=== PATIENT | female | born 1940 | race American Indian/Alaskan Native ===

== ENCOUNTER → 2016-07-11 | Outpatient (CLI) | payer MEDICARE ==
[~2016-07-11] MED LIST: ACLI400A2 INH; ALBU18HF INH; ALBU2.5V NPPB; ALBU8.5H3; ALPR-475 PO; ALPR0.25 PO; ATOR20TA PO; BUDE10.2 INH; CEFD300C2 PO; CEPH-368 PO; CITA40TA5 PO; DIAZ5TAB4 PO; DOXY100C2 PO; DOXY100T9 PO; FAMO20TA7 PO; FERR325C; FLUC200T4 PO; FLUT1BLS INH; FLUT1DIS3 INH; FURO-93 PO; GABA100C PO; GABA300C10 PO; GLIM4TAB PO; GUAI200T3 PO; HYDR-3138 PO; HYDR473S19 PO; HYDR4TAB16 PO; IPRA3AMP INH; LACT1CAP24 PO; LEVO500T8 PO; LEVO750T26 PO; LISI-167 PO; LISI1TAB3 PO; LORA-446 PO; MERO1VIA3 IV; METF500T4 PO; METH4TAB2 PO; METH750T87 PO; MONT10TA6 PO; MORP15TA3 PO; MORP30SU PR; NICO1PAT10 TD; OMEP40CA6 PO; OMNIPAQUE 350 MG/ML, 100ML BOTTLE ONE; ONDA-39 PO; ONDA4TAB7 PO; OXYC1TAB6 PO; OXYC1TAB8 PO; OXYC1TAB9 PO; OXYC30TA PO; OXYC5TAB3 PO; POLY17PO5 PO; POTA20PA PO; PRED10TA PO; PRED20TA PO; PRED50TA PO; PRED5TAB19 PO; RALO60TA PO; RIVA20TA PO; TIOT18CA; TIOT18CA INH; TRAM50TA2 PO
== END | disposition home or self-care (01) ==
LOC: CFH 12:51
PROVIDERS: ATTEND Specialist
DX: C64.9 Malignant neoplasm of unspecified kidney, except renal pelvis (principal); N28.89 Other specified disorders of kidney and ureter; J43.9 Emphysema, unspecified; J98.11 Atelectasis; R59.1 Generalized enlarged lymph nodes; I25.10 Atherosclerotic heart disease of native coronary artery without angina pectoris; K86.89 Other specified diseases of pancreas; K57.30 Diverticulosis of large intestine without perforation or abscess without bleeding; M85.88 Other specified disorders of bone density and structure, other site; D25.9 Leiomyoma of uterus, unspecified; Z90.81 Acquired absence of spleen; Z90.49 Acquired absence of other specified parts of digestive tract
CPT/HCPCS: 71260; 74177; 82565; Q9967

== ENCOUNTER 2016-08-19 03:58 | Inpatient (IN) | payer MEDICARE ==
[~2016-08-19] VITALS: Ht 149.9 cm; Wt 41.2 kg
[~2016-08-19 03:58] MED LIST changes: -CEFD300C2 PO; +CEFD300C37 PO; +MERO1VIA15 IV; -MERO1VIA3 IV; -OMNIPAQUE 350 MG/ML, 100ML BOTTLE ONE
[2016-08-19] MEDS ORDERED: SODIUM CHLORIDE 0.9% 1,000ML IVBOLUS ONE ×2 (04:30→05:30)
[2016-08-19] MEDS ORDERED: ALBUTEROL/IPRATROPIUM 2.5MG/0.5MG, 3 ML ONE (04:41)
[2016-08-19] MEDS ORDERED: methylPREDNISolone SOD SUCC 125 MG/2 ML ONE (04:55)
[2016-08-19] MEDS ORDERED: ALBUTEROL/IPRATROPIUM 2.5MG/0.5MG, 3 ML NPPB ONE (05:00)
[2016-08-19] MEDS ORDERED: methylPREDNISolone SOD SUCC 125 MG/2 ML IVP ONE (05:00)
[2016-08-19] MEDS ORDERED: PANT20TA3 PO (05:11)
[2016-08-19] MEDS ORDERED: DEXT5TAB17 PO (05:11)
[2016-08-19] MEDS ORDERED: FURO20TA3 PO (05:11)
[2016-08-19 05:16] LABS: BLOOD UREA NITROGEN 12 mg/dL (7-18)
[2016-08-19 05:21] LABS: IS PT STATUS REG ER OR PRE ER? YES
[2016-08-19] MEDS ORDERED: LEVOFLOXACIN/PMX 750MG/150ML 150 ML ONE (05:23)
[2016-08-19] MEDS ORDERED: VANCOMYCIN 800 MG in SODIUM CHLORIDE 0.9% 100 ML IV ONE (05:30)
[2016-08-19] MEDS ORDERED: VANCOMYCIN PER PHARMACY MC ONE (05:30)
[2016-08-19] MEDS ORDERED: LEVOFLOXACIN/PMX 750MG/150ML 150 ML IVPB ONE (05:30)
[2016-08-19 05:33] LABS: DIFF TOTAL CELLS COUNTED 100 CELL DIFF
[2016-08-19 05:36] LABS: VERIFY COUNTS? YES
[2016-08-19] MEDS ORDERED: OMNIPAQUE 350 MG/ML, 100ML BOTTLE ONE (06:18)
[2016-08-19] MEDS ORDERED: HYDR2TAB13 PO (06:46)
[2016-08-19] MEDS ORDERED: SODIUM CHLORIDE FLUSH 10ML SYR IVF PRN (07:30)
[2016-08-19] MEDS ORDERED: MORPHINE SULFATE 4 MG/ML, 1ML ONE (07:31)
[2016-08-19] MEDS: MORPHINE SULFATE 4 MG/ML, 1ML IVPush PRN ×2 (07:35→09:22)
[2016-08-19 08:22] VITALS: BP 113/61
[2016-08-19] MEDS ORDERED: DIAZEPAM 5 MG TABLET PO PRN (08:30)
[2016-08-19] MEDS ORDERED: ONDANSETRON 2MG/ML, 2ML IVP PRN (08:30)
[2016-08-19] MEDS: TEMPLATE NON-FORMULARY MED. (Tiotropium Bromide** (Spiriva**) 18 MCG) INH SCH (09:00)
[2016-08-19] MEDS: NICOTINE 14MG/24 HR PATCH.TD24 TD SCH (09:00)
[2016-08-19] MEDS: SENNA/DOCUSATE TABLET PO SCH (09:00)
[2016-08-19] MEDS: GLIMEPIRIDE 4 MG TABLET PO SCH (09:00)
[2016-08-19] MEDS ORDERED: FLUTICASONE/VILANTEROL 200-25MCG/INH INH SCH (09:00)
[2016-08-19] MEDS ORDERED: PROMETHAZINE 12.5 MG SUPP PR PRN (09:30)
[2016-08-19] MEDS: HYDROmorphone 2 MG/ML, 1ML IV PRN ×2 (10:00→16:13)
[2016-08-19] MEDS: FAMOTIDINE 20 MG TABLET PO SCH ×2 (10:02→22:36)
[2016-08-19] MEDS: DOXYCYCLINE 100MG TABLET PO SCH ×2 (10:02→22:36)
[2016-08-19] MEDS: FUROSEMIDE 20 MG TABLET PO SCH (10:02)
[2016-08-19] MEDS: ENOXAPARIN 40 MG/0.4 ML SQ SCH (10:03)
[2016-08-19] MEDS: methylPREDNISolone SOD SUCC 125 MG/2 ML IVPush SCH ×2 (10:03→17:13)
[2016-08-19] MEDS: CEFTRIAXONE PMX 1GM/50ML 50 ML IV SCH (10:04)
[2016-08-19] MEDS: SODIUM CHLORIDE FLUSH 10ML SYR IVF SCH ×2 (10:05→21:00)
[2016-08-19] MEDS: FLUTICASONE/VILANTEROL 200-25MCG/INH INH SCH (10:15)
[2016-08-19] MEDS ORDERED: ALBUTEROL/IPRATROPIUM 2.5MG/0.5MG, 3 ML NPPB PRN (12:30)
[2016-08-19] MEDS: INSULIN REGULAR 100 UNITS/ML, 3ML VIAL SQ-INSULIN SCH ×3 (12:51→21:00)
[2016-08-19 12:55] VITALS: BP 127/65
[2016-08-19 19:06] VITALS: BP 95/54
[2016-08-19] MEDS: OXYcodone IR 5MG TABLET PO PRN (22:49)
[2016-08-20] MEDS: methylPREDNISolone SOD SUCC 125 MG/2 ML IVPush SCH ×3 (01:15→16:38)
[2016-08-20 01:47] VITALS: BP 110/62
[2016-08-20 06:08] LABS: BLOOD UREA NITROGEN 14 mg/dL (7-18)
[2016-08-20 06:30] VITALS: BP 139/66
[2016-08-20] MEDS: SENNA/DOCUSATE TABLET PO SCH (09:00)
[2016-08-20] MEDS: TEMPLATE NON-FORMULARY MED. (Tiotropium Bromide** (Spiriva**) 18 MCG) INH SCH (09:00)
[2016-08-20] MEDS: NICOTINE 14MG/24 HR PATCH.TD24 TD SCH (09:00)
[2016-08-20] MEDS: GLIMEPIRIDE 4 MG TABLET PO SCH (09:00)
[2016-08-20] MEDS: CEFTRIAXONE PMX 1GM/50ML 50 ML IV SCH (09:06)
[2016-08-20] MEDS: FLUTICASONE/VILANTEROL 200-25MCG/INH INH SCH (09:06)
[2016-08-20] MEDS: DOXYCYCLINE 100MG TABLET PO SCH ×2 (09:06→22:01)
[2016-08-20] MEDS: FAMOTIDINE 20 MG TABLET PO SCH ×2 (09:06→22:01)
[2016-08-20] MEDS: ENOXAPARIN 40 MG/0.4 ML SQ SCH (09:07)
[2016-08-20] MEDS: FUROSEMIDE 20 MG TABLET PO SCH (09:07)
[2016-08-20] MEDS: OXYcodone IR 5MG TABLET PO PRN (09:07)
[2016-08-20] MEDS: INSULIN REGULAR 100 UNITS/ML, 3ML VIAL SQ-INSULIN SCH ×4 (09:09→22:22)
[2016-08-20] MEDS: SODIUM CHLORIDE FLUSH 10ML SYR IVF SCH ×2 (09:21→22:01)
[2016-08-20 13:25] VITALS: BP 110/45
[2016-08-20] MEDS: OXYcodone IR 30 MG TABLET PO PRN ×2 (14:57→22:22)
[2016-08-20] MEDS ORDERED: MAGNESIUM SULFATE PMX 2GM/50ML 50 ML IV ONE (18:00)
[2016-08-20 20:00] VITALS: BP 106/58
[2016-08-21] MEDS: methylPREDNISolone SOD SUCC 125 MG/2 ML IVPush SCH ×2 (00:51→08:57)
[2016-08-21 00:56] VITALS: BP 119/54
[2016-08-21 06:37] LABS: ASPARTATE AMINO TRANSFERASE 9 U/L (15-37); BLOOD UREA NITROGEN 21 mg/dL (7-18)
[2016-08-21 07:06] LABS: DIFF TOTAL CELLS COUNTED 100 CELL DIFF
[2016-08-21 07:09] LABS: ANISOCYTOSIS 1+; VERIFY COUNTS? YES
[2016-08-21 07:10] LABS: ACANTHOCYTES 1+; ECHINOCYTES 1+; POIKILOCYTOSIS 1+; TARGET CELLS 1+
[2016-08-21 07:14] LABS: LARGE PLATELETS 1+; OVALOCYTES 1+
[2016-08-21 07:34] VITALS: BP 122/61
[2016-08-21] MEDS: SENNA/DOCUSATE TABLET PO SCH (07:41)
[2016-08-21] MEDS: GLIMEPIRIDE 4 MG TABLET PO SCH (07:41)
[2016-08-21] MEDS: TEMPLATE NON-FORMULARY MED. (Tiotropium Bromide** (Spiriva**) 18 MCG) INH SCH (07:41)
[2016-08-21] MEDS: NICOTINE 14MG/24 HR PATCH.TD24 TD SCH (07:42)
[2016-08-21] MEDS: FLUTICASONE/VILANTEROL 200-25MCG/INH INH SCH (08:57)
[2016-08-21] MEDS: DOXYCYCLINE 100MG TABLET PO SCH (08:57)
[2016-08-21] MEDS: INSULIN REGULAR 100 UNITS/ML, 3ML VIAL SQ-INSULIN SCH ×2 (08:57→11:00)
[2016-08-21] MEDS: FUROSEMIDE 20 MG TABLET PO SCH (08:57)
[2016-08-21] MEDS: FAMOTIDINE 20 MG TABLET PO SCH (08:57)
[2016-08-21] MEDS: SODIUM CHLORIDE FLUSH 10ML SYR IVF SCH (08:58)
[2016-08-21] MEDS: ENOXAPARIN 40 MG/0.4 ML SQ SCH (08:58)
[2016-08-21] MEDS: CEFTRIAXONE PMX 1GM/50ML 50 ML IV SCH (08:58)
[2016-08-21] MEDS: OXYcodone IR 30 MG TABLET PO PRN (08:59)
[2016-08-21] MEDS ORDERED: PRED10TA PO (12:47)
[2016-08-21] MEDS ORDERED: DOXY100C2 PO (12:47)
[2016-08-21] MEDS ORDERED: IPRA3AMP NPPB (12:47)
== END 2016-08-21 13:11 | disposition home or self-care (01) | DRG 189 ==
LOC: ED 05:13 → EDIP 07:28 → 4WST 08:25
PROVIDERS: ADMIT Hospitalist; ATTEND Internal Medicine
DX: J96.21 Acute and chronic respiratory failure with hypoxia (principal); J44.1 Chronic obstructive pulmonary disease with (acute) exacerbation; J44.0 Chronic obstructive pulmonary disease with (acute) lower respiratory infection; I10 Essential (primary) hypertension; F17.210 Nicotine dependence, cigarettes, uncomplicated; J20.9 Acute bronchitis, unspecified; G89.4 Chronic pain syndrome; Z85.07 Personal history of malignant neoplasm of pancreas; Z90.81 Acquired absence of spleen; Z84.1 Family history of disorders of kidney and ureter; Z82.49 Family history of ischemic heart disease and other diseases of the circulatory system; Z88.6 Allergy status to analgesic agent; Z88.1 Allergy status to other antibiotic agents; Z88.8 Allergy status to other drugs, medicaments and biological substances
CPT/HCPCS: 36415; 71010; 71275; 80048; 80053; 81206; 81207; 82040; 82962; 83605; 83735; 83880; 84145; 84484; 85025; 87040; 87070; 87205; 93005; 94640; 96361; 96365; 96375; J0696; J1170; J1650; J1815; J1956; J3370; J7620; Q9967; J2930; J3475; J7030

== ENCOUNTER 2016-10-01 15:41 | Observation (INO) | payer MEDICARE ==
[~2016-10-01] VITALS: Ht 149.9 cm; Wt 35.5 kg
[~2016-10-01 15:41] MED LIST changes: +DEXT5TAB17 PO; +FURO20TA3 PO; +HYDR2TAB29 PO; -HYDR4TAB16 PO; +HYDR4TAB48 PO; +IPRA3AMP NPPB; +PANT20TA3 PO
[2016-10-01] MEDS ORDERED: SODIUM CHLORIDE 0.9% 1,000ML IVBOLUS ONE (16:00)
[2016-10-01] MEDS ORDERED: ASPIRIN 81 MG TABLET CHEW PO ONE (16:00)
[2016-10-01] MEDS ORDERED: SODIUM CHLORIDE FLUSH 10ML SYR IVF ONE (16:00)
[2016-10-01] MEDS ORDERED: ASPIRIN 81 MG TABLET CHEW ONE (16:17)
[2016-10-01 17:23] LABS: BLOOD UREA NITROGEN 14 mg/dL (7-18)
[2016-10-01 17:27] LABS: IS PT STATUS REG ER OR PRE ER? YES
[2016-10-01 17:59] LABS: ACANTHOCYTES 1+; LARGE PLATELETS 1+; MICROCYTOSIS 1+; OVALOCYTES 1+; TARGET CELLS 1+
[2016-10-01] MEDS ORDERED: LIDOCAINE 1%, 20ML ONE (19:07)
[2016-10-01] MEDS ORDERED: BACITRACIN ZINC OINT 500U/GM, 0.9 GM ONE (19:30)
[2016-10-01] MEDS ORDERED: ACETAMINOPHEN 325 MG TABLET PO PRN (20:00)
[2016-10-01] MEDS ORDERED: HYDROmorphone 1 MG/ML, 1ML IVPush PRN (20:00)
[2016-10-01] MEDS ORDERED: NICOTINE 14MG/24 HR PATCH.TD24 TD SCH (20:00)
[2016-10-01] MEDS ORDERED: GUAIFENESIN/DM 200-20MG, 10ML UDC PO PRN (20:00)
[2016-10-01] MEDS ORDERED: ONDANSETRON 2MG/ML, 2ML IVPush PRN (20:00)
[2016-10-01] MEDS ORDERED: ENOXAPARIN 40 MG/0.4 ML SQ SCH (20:00)
[2016-10-01] MEDS ORDERED: BISACODYL 10 MG SUPP PR PRN (20:00)
[2016-10-01] MEDS ORDERED: POLYETHYLENE GLYCOL 17 GM PACKET PO PRN (20:00)
[2016-10-01] MEDS ORDERED: LABETALOL 5MG/ML, 20ML IVPush PRN (20:00)
[2016-10-01] MEDS ORDERED: SODIUM CHLORIDE FLUSH 10ML SYR IVF PRN (20:00)
[2016-10-01] MEDS ORDERED: TRAZODONE 50MG TABLET PO PRN (20:00)
[2016-10-01] MEDS ORDERED: DOCUSATE 100 MG CAPSULE PO PRN (20:00)
[2016-10-01] MEDS ORDERED: ENOXAPARIN 40 MG/0.4 ML ONE (20:03)
[2016-10-01] MEDS ORDERED: HYDROmorphone 1 MG/ML, 1ML ONE (20:03)
[2016-10-01] MEDS: SODIUM CHLORIDE 0.9% 1,000 ML IV SCH (20:29)
[2016-10-01] MEDS: OXYcodone IR 5MG TABLET PO SCH ×2 (20:46→21:45)
[2016-10-01 21:49] VITALS: BP 139/66
[2016-10-01] MEDS ORDERED: ALBUTEROL/IPRATROPIUM 2.5MG/0.5MG, 3 ML NPPB PRN (22:00)
[2016-10-01 23:32] LABS: IS PT STATUS REG ER OR PRE ER? NO
[2016-10-02] MEDS: SODIUM CHLORIDE 0.9% 1,000 ML IV SCH ×2 (00:19→05:58)
[2016-10-02 01:57] VITALS: BP 173/77
[2016-10-02] MEDS: OXYcodone IR 5MG TABLET PO SCH ×4 (02:10→14:46)
[2016-10-02] MEDS ORDERED: MORPHINE SULFATE 4 MG/ML, 1ML IVPush PRN (03:00)
[2016-10-02 08:28] VITALS: BP_SYST 109; BP_SYST 112; BP_SYST 124; BP_DIAS 58; BP_DIAS 60; BP_DIAS 69
[2016-10-02 08:29] LABS: BLOOD UREA NITROGEN 6 mg/dL (7-18)
[2016-10-02 08:37] LABS: ASPARTATE AMINO TRANSFERASE 14 U/L (15-37)
[2016-10-02 08:39] LABS: IS PT STATUS REG ER OR PRE ER? NO
[2016-10-02] MEDS ORDERED: FLUTICASONE/VILANTEROL 200-25MCG/INH INH SCH (09:00)
[2016-10-02] MEDS ORDERED: TEMPLATE NON-FORMULARY MED. (Tiotropium Bromide** (Spiriva**) 18 MCG) INH SCH (09:00)
[2016-10-02] MEDS ORDERED: GUAIFENESIN 200 MG TABLET PO SCH (11:00)
[2016-10-02 13:24] VITALS: BP 119/61
[2016-10-02] MEDS ORDERED: PRED20TA PO (16:24)
[2016-10-02] MEDS ORDERED: GUAI200T3 PO (16:24)
[2016-10-02] MEDS ORDERED: DOXY100C2 PO (16:24)
[2016-10-02] MEDS: MAGNESIUM OXIDE 400 MG TABLET PO SCH ×2 (17:57→17:59)
[2016-10-02] MEDS ORDERED: DOXYCYCLINE 100MG TABLET PO SCH (21:00)
[2016-10-03] MEDS ORDERED: MAGNESIUM OXIDE 400 MG TABLET PO SCH (09:00)
== END 2016-10-02 18:25 | disposition home or self-care (01) ==
LOC: ED 17:14 → EDIP 19:39 → INTOOBSV 19:39 → 4EST 21:26
PROVIDERS: ADMIT Internal Medicine; ATTEND Internal Medicine
DX: R55 Syncope and collapse (principal); S01.81XA Laceration without foreign body of other part of head, initial encounter; S61.411A Laceration without foreign body of right hand, initial encounter; J20.9 Acute bronchitis, unspecified; J44.1 Chronic obstructive pulmonary disease with (acute) exacerbation; C25.9 Malignant neoplasm of pancreas, unspecified; G89.4 Chronic pain syndrome; D72.828 Other elevated white blood cell count; F17.210 Nicotine dependence, cigarettes, uncomplicated; F41.9 Anxiety disorder, unspecified; I10 Essential (primary) hypertension; J96.10 Chronic respiratory failure, unspecified whether with hypoxia or hypercapnia; R63.6 Underweight; Z85.07 Personal history of malignant neoplasm of pancreas; Z99.81 Dependence on supplemental oxygen; W20.8XXA Other cause of strike by thrown, projected or falling object, initial encounter; Y93.89 Activity, other specified; Y92.89 Other specified places as the place of occurrence of the external cause; Y99.8 Other external cause status; E44.0 Moderate protein-calorie malnutrition
CPT/HCPCS: 36415; 70450; 71010; 80048; 80053; 81003; 82040; 83036; 83735; 84439; 84443; 84484; 85025; 93005; 94640; 96361; 96372; 96374; 96375; 99285; G0378; J1170; J1650; J7030; J7512; J7620

== ENCOUNTER → 2016-11-14 | Outpatient (CLI) | payer MEDICARE ==
[~2016-11-14] MED LIST changes: +OMNIPAQUE 350 MG/ML, 100ML BOTTLE ONE
== END | disposition home or self-care (01) ==
LOC: CFH 10:33
PROVIDERS: ATTEND Specialist
DX: C64.2 Malignant neoplasm of left kidney, except renal pelvis (principal); J43.2 Centrilobular emphysema; I25.10 Atherosclerotic heart disease of native coronary artery without angina pectoris; M85.80 Other specified disorders of bone density and structure, unspecified site; K76.89 Other specified diseases of liver; K57.30 Diverticulosis of large intestine without perforation or abscess without bleeding; Z90.411 Acquired partial absence of pancreas; Z90.81 Acquired absence of spleen; Z90.49 Acquired absence of other specified parts of digestive tract
CPT/HCPCS: 71260; 74177; 82565; Q9967

== ENCOUNTER 2017-01-19 21:10 | Emergency (ER) | payer MEDICARE ==
[~2017-01-19] VITALS: Ht 149.9 cm; Wt 40.0 kg
[~2017-01-19 21:10] MED LIST changes: -ALBU8.5H3; +ALBU8.5H8; +GUAI100L11 PO; -HYDR-3138 PO; +HYDR-3237 PO; +NICO-485 TD; -NICO1PAT10 TD; -OMNIPAQUE 350 MG/ML, 100ML BOTTLE ONE; -ONDA-39 PO; +ONDA4TAB12 PO
[2017-01-19] MEDS ORDERED: PLEASE ENTER HEIGHT AND WEIGHT MC SCH (21:30)
[2017-01-19] MEDS ORDERED: ALBUTEROL SULFATE 2.5 MG/3 ML NPPB ONE (21:30)
[2017-01-19] MEDS ORDERED: ALBUTEROL SULFATE 2.5 MG/3 ML ONE (21:32)
[2017-01-19 21:56] LABS: HEMATOCRIT 52.6 % (34.6-47.8); HEMOGLOBIN 17.6 g/dL (11.7-16.4); WHITE BLOOD COUNT 14.9 x10^3/uL (3.4-10)
[2017-01-19 22:04] LABS: BLOOD UREA NITROGEN 11 mg/dL (7-18)
[2017-01-19 22:15] LABS: IS PT STATUS REG ER OR PRE ER? YES
[2017-01-19] MEDS ORDERED: ZIPRASIDONE 20 MG INJ IM ONE (22:56)
[2017-01-19] MEDS ORDERED: ACETAMINOPHEN 325 MG TABLET PO ONE (23:30)
[2017-01-19] MEDS ORDERED: ACETAMINOPHEN 325 MG TABLET ONE (23:48)
[2017-01-19 23:51] VITALS: BP 123/64
== END 2017-01-20 00:15 | disposition home or self-care (01) ==
LOC: ED 22:04
DX: J96.10 Chronic respiratory failure, unspecified whether with hypoxia or hypercapnia (principal); J44.9 Chronic obstructive pulmonary disease, unspecified; I10 Essential (primary) hypertension; Z90.710 Acquired absence of both cervix and uterus; F17.200 Nicotine dependence, unspecified, uncomplicated
CPT/HCPCS: 36415; 71010; 80048; 82040; 83880; 84484; 85025; 93005; 94640; 99285; J7613

== ENCOUNTER 2017-01-23 18:26 | Inpatient (IN) | payer MEDICARE ==
[~2017-01-23] VITALS: Ht 149.9 cm; Wt 42.7 kg
[2017-01-23] MEDS ORDERED: ALBUTEROL/IPRATROPIUM 2.5MG/0.5MG, 3 ML NPPB PRN (19:30)
[2017-01-23] MEDS ORDERED: methylPREDNISolone SOD SUCC 125 MG/2 ML IVPush ONE (20:00)
[2017-01-23] MEDS ORDERED: SODIUM CHLORIDE 0.9% 1,000ML IVBOLUS ONE ×2 (20:00→21:30)
[2017-01-23] MEDS ORDERED: ALBUTEROL/IPRATROPIUM 2.5MG/0.5MG, 3 ML NEB ONE (20:00)
[2017-01-23 20:22] LABS: HEMOGLOBIN 16.9 g/dL (11.7-16.4); WHITE BLOOD COUNT 18.5 x10^3/uL (3.4-10)
[2017-01-23 20:23] LABS: DIFF TOTAL CELLS COUNTED 100 CELL DIFF
[2017-01-23 20:29] LABS: BLOOD UREA NITROGEN 15 mg/dL (7-18)
[2017-01-23] MEDS ORDERED: LEVOFLOXACIN/PMX 750MG/150ML 150 ML IV ONE (20:30)
[2017-01-23 20:33] LABS: ASPARTATE AMINO TRANSFERASE 19 U/L (15-37); IS PT STATUS REG ER OR PRE ER? YES
[2017-01-23 20:44] LABS: VERIFY COUNTS? YES
[2017-01-23 20:45] LABS: LARGE PLATELETS 1+
[2017-01-23] MEDS ORDERED: ALBUTEROL/IPRATROPIUM 2.5MG/0.5MG, 3 ML ONE (21:04)
[2017-01-23] MEDS ORDERED: LEVOFLOXACIN/PMX 750MG/150ML 150 ML ONE (21:13)
[2017-01-23] MEDS ORDERED: methylPREDNISolone SOD SUCC 125 MG/2 ML ONE (21:13)
[2017-01-23] MEDS ORDERED: ALBUTEROL SULFATE 2.5 MG/3 ML NPPB ONE (21:30)
[2017-01-23] MEDS ORDERED: POLYETHYLENE GLYCOL 17 GM PACKET PO PRN (22:00)
[2017-01-23] MEDS ORDERED: GUAIFENESIN/DM 200-20MG, 10ML UDC PO PRN (22:00)
[2017-01-23] MEDS ORDERED: PROMETHAZINE 25 MG/ML, 1ML IM PRN (22:00)
[2017-01-23] MEDS ORDERED: ACETAMINOPHEN 325 MG TABLET PO PRN (22:00)
[2017-01-23] MEDS ORDERED: BISACODYL 10 MG SUPP PR PRN (22:00)
[2017-01-23] MEDS: LEVOFLOXACIN/PMX 750MG/150ML 150 ML IV SCH (22:00)
[2017-01-23] MEDS ORDERED: IPRATROPIUM 0.5 MG/2.5 ML INHA NPPB SCH (23:00)
[2017-01-23 23:19] VITALS: BP 128/68
[2017-01-23] MEDS ORDERED: MAGNESIUM SULFATE PMX 2GM/50ML 50 ML IV ONE (23:30)
[2017-01-24] MEDS: methylPREDNISolone SOD SUCC 125 MG/2 ML IVPush SCH ×4 (00:26→17:40)
[2017-01-24] MEDS: HEPARIN 5,000 UNITS/ML, 1ML SQ SCH ×4 (00:26→17:40)
[2017-01-24] MEDS: OXYcodone IR 5MG TABLET PO PRN ×3 (00:26→17:40)
[2017-01-24] MEDS: SODIUM CHLORIDE FLUSH 10ML SYR IVF SCH ×4 (00:26→22:24)
[2017-01-24 01:34] VITALS: BP 103/58
[2017-01-24 05:42] LABS: ASPARTATE AMINO TRANSFERASE 11 U/L (15-37); BLOOD UREA NITROGEN 12 mg/dL (7-18)
[2017-01-24] MEDS: OXYcodone 5 MG/5 ML ORAL.SOL UDC PO PRN ×2 (05:49→22:29)
[2017-01-24 06:20] LABS: HEMATOCRIT 44.5 % (34.6-47.8); HEMOGLOBIN 14.9 g/dL (11.7-16.4); WHITE BLOOD COUNT 13.5 x10^3/uL (3.4-10)
[2017-01-24 06:24] LABS: ANISOCYTOSIS 1+
[2017-01-24 06:25] LABS: HOWELL-JOLLY BODIES 1+
[2017-01-24 06:26] LABS: LARGE PLATELETS 1+
[2017-01-24] MEDS: ALBUTEROL/IPRATROPIUM 2.5MG/0.5MG, 3 ML NPPB SCH ×4 (06:31→21:03)
[2017-01-24 06:40] VITALS: BP 118/57
[2017-01-24] MEDS: FUROSEMIDE 20 MG TABLET PO SCH ×2 (09:00→17:40)
[2017-01-24] MEDS: SENNA/DOCUSATE TABLET PO SCH (09:00)
[2017-01-24] MEDS: FLUTICASONE/VILANTEROL 200-25MCG/INH INH SCH (11:46)
[2017-01-24 12:12] VITALS: BP 146/69
[2017-01-24 20:16] VITALS: BP 123/61
[2017-01-24] MEDS: LEVOFLOXACIN/PMX 750MG/150ML 150 ML IV SCH (22:24)
[2017-01-25 00:40] VITALS: BP 128/67
[2017-01-25] MEDS: HEPARIN 5,000 UNITS/ML, 1ML SQ SCH ×3 (01:15→17:27)
[2017-01-25] MEDS: methylPREDNISolone SOD SUCC 125 MG/2 ML IVPush SCH ×5 (01:15→23:02)
[2017-01-25 06:17] LABS: HEMATOCRIT 44.6 % (34.6-47.8); HEMOGLOBIN 14.9 g/dL (11.7-16.4); WHITE BLOOD COUNT 17.7 x10^3/uL (3.4-10)
[2017-01-25 06:20] LABS: BLOOD UREA NITROGEN 14 mg/dL (7-18)
[2017-01-25 06:42] VITALS: BP 136/75
[2017-01-25] MEDS: ALBUTEROL/IPRATROPIUM 2.5MG/0.5MG, 3 ML NPPB SCH ×3 (07:07→19:27)
[2017-01-25] MEDS: SENNA/DOCUSATE TABLET PO SCH (09:00)
[2017-01-25] MEDS: SODIUM CHLORIDE FLUSH 10ML SYR IVF SCH ×2 (09:00→20:30)
[2017-01-25] MEDS: OXYcodone 5 MG/5 ML ORAL.SOL UDC PO PRN ×2 (09:04→15:13)
[2017-01-25] MEDS: FLUTICASONE/VILANTEROL 200-25MCG/INH INH SCH (09:04)
[2017-01-25] MEDS: FUROSEMIDE 20 MG TABLET PO SCH (09:10)
[2017-01-25 12:15] VITALS: BP 116/67
[2017-01-25] MEDS: CALCIUM/VITAMIN D3 250-125 TABLET PO SCH (15:34)
[2017-01-25 18:50] VITALS: BP 145/68
[2017-01-25] MEDS ORDERED: BISACODYL 10 MG SUPP PR PRN (20:00)
[2017-01-25] MEDS ORDERED: PROMETHAZINE 25 MG/ML, 1ML IM PRN (20:00)
[2017-01-25] MEDS ORDERED: ACETAMINOPHEN 325 MG TABLET PO PRN (20:00)
[2017-01-25] MEDS: LEVOFLOXACIN/PMX 750MG/150ML 150 ML IV SCH (23:03)
[2017-01-26 00:53] VITALS: BP 165/82
[2017-01-26] MEDS: HEPARIN 5,000 UNITS/ML, 1ML SQ SCH ×3 (00:59→17:00)
[2017-01-26] MEDS: OXYcodone 5 MG/5 ML ORAL.SOL UDC PO PRN ×2 (01:04→08:19)
[2017-01-26] MEDS: ALBUTEROL/IPRATROPIUM 2.5MG/0.5MG, 3 ML NPPB SCH ×4 (01:30→15:35)
[2017-01-26 04:58] LABS: HEMATOCRIT 43.3 % (34.6-47.8); HEMOGLOBIN 14.5 g/dL (11.7-16.4); WHITE BLOOD COUNT 16.6 x10^3/uL (3.4-10)
[2017-01-26 05:09] LABS: BLOOD UREA NITROGEN 16 mg/dL (7-18)
[2017-01-26 05:35] LABS: DIFF TOTAL CELLS COUNTED 100 CELL DIFF
[2017-01-26 05:37] LABS: VERIFY COUNTS? YES
[2017-01-26 05:38] LABS: ANISOCYTOSIS 1+; HOWELL-JOLLY BODIES 1+
[2017-01-26 05:39] LABS: LARGE PLATELETS 1+
[2017-01-26] MEDS: methylPREDNISolone SOD SUCC 125 MG/2 ML IVPush SCH ×3 (05:41→17:30)
[2017-01-26 07:17] VITALS: BP 161/74
[2017-01-26] MEDS ORDERED: CALCIUM/VITAMIN D3 250-125 TABLET PO SCH (09:00)
[2017-01-26] MEDS: SENNA/DOCUSATE TABLET PO SCH (09:00)
[2017-01-26] MEDS: CALCIUM/VITAMIN D3 250-125 TABLET PO SCH (10:36)
[2017-01-26] MEDS: FUROSEMIDE 20 MG TABLET PO SCH (10:38)
[2017-01-26] MEDS: SODIUM CHLORIDE FLUSH 10ML SYR IVF SCH (10:39)
[2017-01-26] MEDS: FLUTICASONE/VILANTEROL 200-25MCG/INH INH SCH (10:39)
[2017-01-26] MEDS ORDERED: LEVO750T26 PO (11:49)
[2017-01-26] MEDS ORDERED: PRED20TA PO (11:49)
[2017-01-26] MEDS: MORPHINE SULFATE 4 MG/ML, 1ML IVPush PRN ×2 (12:05→16:36)
[2017-01-26 14:00] VITALS: BP 164/75
[2017-01-26] MEDS ORDERED: FLU VACC QS2017-18 (36MOS+) UP/PF 0.5 ML IM-VACC ONE (15:30)
[2017-01-26] MEDS ORDERED: PNEUMOCOCCAL 23 VACCINE IM-VACC ONE (17:00)
[2017-01-27] MEDS ORDERED: SENNA/DOCUSATE TABLET PO SCH (09:00)
== END 2017-01-26 17:10 | disposition home or self-care (01) | DRG 871 ==
LOC: ED 20:24 → EDIP 21:18 → 4EST 23:16 → 3NW 01-25 17:48
PROVIDERS: ADMIT Internal Medicine; ATTEND Internal Medicine
DX: A41.9 Sepsis, unspecified organism (principal); J18.9 Pneumonia, unspecified organism; J96.21 Acute and chronic respiratory failure with hypoxia; J44.0 Chronic obstructive pulmonary disease with (acute) lower respiratory infection; D75.1 Secondary polycythemia; E44.1 Mild protein-calorie malnutrition; J44.1 Chronic obstructive pulmonary disease with (acute) exacerbation; Z68.1 Body mass index [BMI] 19.9 or less, adult; R00.0 Tachycardia, unspecified; Z88.8 Allergy status to other drugs, medicaments and biological substances; F17.200 Nicotine dependence, unspecified, uncomplicated; G89.29 Other chronic pain; I10 Essential (primary) hypertension; K21.9 Gastro-esophageal reflux disease without esophagitis; Z85.528 Personal history of other malignant neoplasm of kidney; Z90.3 Acquired absence of stomach [part of]; Z90.81 Acquired absence of spleen
CPT/HCPCS: 36415; 71010; 80048; 80053; 83605; 83880; 84145; 84484; 85025; 87040; 87070; 87205; 90686; 90732; 93005; 94640; 96361; 96374; J1644; J1956; J7620; J2930; J3475; J7030

== ENCOUNTER → 2017-03-19 | Outpatient (CLI) | payer MEDICARE ==
[~2017-03-19] MED LIST changes: +OMNIPAQUE 350 MG/ML, 150 ML BOTTLE ONE
== END | disposition home or self-care (01) ==
LOC: CFH 08:05
PROVIDERS: ATTEND Specialist
DX: J43.2 Centrilobular emphysema (principal); K76.89 Other specified diseases of liver; I71.4 Abdominal aortic aneurysm, without rupture; R22.1 Localized swelling, mass and lump, neck; C25.9 Malignant neoplasm of pancreas, unspecified; C64.9 Malignant neoplasm of unspecified kidney, except renal pelvis; F41.9 Anxiety disorder, unspecified; I10 Essential (primary) hypertension; E78.4 Other hyperlipidemia; G89.29 Other chronic pain; Z72.0 Tobacco use
CPT/HCPCS: 70491; 71260; 74177; 82565; Q9967

== ENCOUNTER 2017-04-18 15:52 | Emergency (ER) | payer MEDICARE ==
[~2017-04-18] VITALS: Ht 149.9 cm; Wt 40.2 kg
[~2017-04-18 15:52] MED LIST changes: +DOXY100T PO; +MOME13HF INH; -OMNIPAQUE 350 MG/ML, 150 ML BOTTLE ONE; +OXYC20TA2 PO
[2017-04-18 17:53] VITALS: BP 128/78
== END 2017-04-18 18:02 | disposition home or self-care (01) ==
LOC: ED 17:35
DX: J44.9 Chronic obstructive pulmonary disease, unspecified (principal); R09.3 Abnormal sputum; I10 Essential (primary) hypertension; G89.29 Other chronic pain; Z88.1 Allergy status to other antibiotic agents
CPT/HCPCS: 99283

== ENCOUNTER 2017-05-25 23:18 | Inpatient (IN) | payer MEDICARE ==
[~2017-05-25] VITALS: Ht 149.9 cm; Wt 42.2 kg
[2017-05-25] MEDS ORDERED: SODIUM CHLORIDE 0.9% 1,000 ML IV ONE (23:31)
[2017-05-25] MEDS ORDERED: KETOROLAC 30 MG/1 ML ONE (23:48)
[2017-05-25 23:49] LABS: MEAN CORPUSCULAR HEMOGLOBIN 32.8 pg (27.0-34.8); MEAN CORPUSCULAR HGB CONC 33.2 g/dL (32.4-35.8); PLATELET COUNT 213 x10^3/uL (130-400); RED BLOOD COUNT 4.34 x10^6/uL (3.82-5.3); RED CELL DISTRIBUTION WIDTH 13.1 % (9.6-15.2)
[2017-05-25 23:58] LABS: INTERNATIONAL NORMALIZED RATIO 1.05 (0.93-1.1); PROTHROMBIN TIME 10.8 Seconds (9.6-11.5)
[2017-05-26] MEDS ORDERED: SODIUM CHLORIDE FLUSH 10ML SYR IVF ONE
[2017-05-26] MEDS ORDERED: KETOROLAC 30 MG/1 ML IVPush ONE
[2017-05-26 00:01] LABS: ALANINE AMINOTRANSFERASE 17 U/L (12-78); ALBUMIN 3.4 g/dL (3.4-5.0); ANION GAP 6 mmol/L (5-15); CALCIUM 8.5 mg/dL (8.5-10.1); CHLORIDE 103 mmol/L (98-107); CREATININE 0.52 mg/dL (0.55-1.02)
[2017-05-26 00:05] LABS: ALKALINE PHOSPHATASE 66 U/L (45-117); BILIRUBIN,TOTAL 1.4 mg/dL (0.2-1.0); TOTAL PROTEIN 6.5 g/dL (6.4-8.2); TROPONIN I < 0.015 ng/mL (0.000-0.045)
[2017-05-26 00:11] LABS: MD YES
[2017-05-26 00:14] LABS: ANISOCYTOSIS 1+; EOS#(MANUAL) 0.19 x10^3/uL (0.0-0.4); EOS% (MANUAL) 1 % (1-7); LYMPH#(MANUAL) 1.74 x10^3/uL (1-3.4); LYMPHS% (MANUAL) 9 % (22-44); MONOS#(MANUAL) 0.58 x10^3/uL (0.3-2.7); MONOS% (MANUAL) 3 % (2-9); SEG#(MANUAL) 16.79 x10^3/uL (1.8-6.8); SEGS% (MANUAL) 87 % (42-75)
[2017-05-26 00:15] LABS: <PLATELET ESTIMATE> ADEQUATE; LARGE PLATELETS 1+; OVALOCYTES 1+
[2017-05-26] MEDS ORDERED: PIPERACILLIN/TAZO/PMX 3.375GM 50 ML IVPB ONE (01:30)
[2017-05-26] MEDS ORDERED: VANCOMYCIN 800 MG in SODIUM CHLORIDE 0.9% 100 ML IV ONE (01:30)
[2017-05-26] MEDS ORDERED: VANCOMYCIN PER PHARMACY IV ONE (01:30)
[2017-05-26] MEDS ORDERED: SODIUM CHLORIDE 0.9% 1,000ML IVBOLUS ONE (01:30)
[2017-05-26] MEDS ORDERED: PIPERACILLIN/TAZO/PMX 3.375GM 50 ML ONE (01:34)
[2017-05-26] MEDS ORDERED: NS + 20MEQ KCL 1,000 ML IV SCH (02:09)
[2017-05-26] MEDS ORDERED: DOCUSATE 100 MG CAPSULE PO PRN (02:30)
[2017-05-26] MEDS ORDERED: ALBUTEROL/IPRATROPIUM 2.5MG/0.5MG, 3 ML NEB PRN (02:30)
[2017-05-26] MEDS ORDERED: TEMPLATE NON-FORMULARY MED. (Oxycodone Hcl** 20 MG) PO SCH (02:30)
[2017-05-26] MEDS ORDERED: TEMPLATE NON-FORMULARY MED. (Albuterol Sulfate (Ventolin Hfa) 2 PUFFS) INH PRN (02:30)
[2017-05-26] MEDS ORDERED: ACETAMINOPHEN 325 MG TABLET PO PRN (02:30)
[2017-05-26] MEDS ORDERED: ONDANSETRON 2MG/ML, 2ML IVPush PRN (02:30)
[2017-05-26] MEDS ORDERED: DIAZEPAM 5 MG TABLET PO PRN (02:30)
[2017-05-26] MEDS: NICOTINE 14MG/24 HR PATCH.TD24 TD SCH ×2 (02:30→08:32)
[2017-05-26] MEDS ORDERED: POLYETHYLENE GLYCOL 17 GM PACKET PO PRN (02:30)
[2017-05-26] MEDS ORDERED: OMNIPAQUE 350 MG/ML, 100ML BOTTLE ONE (02:48)
[2017-05-26 02:57] VITALS: BP 123/61
[2017-05-26] MEDS ORDERED: ALBUTEROL SULFATE 2.5 MG/3 ML NPPB PRN (03:00)
[2017-05-26] MEDS: OXYCODONE MC SCH ×2 (03:00→10:29)
[2017-05-26] MEDS: morphine SULFATE 10 MG/ML, 1ML IVPush PRN ×5 (03:49→23:16)
[2017-05-26] MEDS: AMPICILLIN/SULBACTAM 3 GM in SODIUM CHLORIDE 0.9% 100 ML IV SCH ×4 (05:04→23:13)
[2017-05-26] MEDS: ENOXAPARIN 40 MG/0.4 ML SQ SCH (05:05)
[2017-05-26 05:09] VITALS: BP 104/57
[2017-05-26] MEDS: SENNA/DOCUSATE TABLET PO SCH (08:33)
[2017-05-26] MEDS: OXYcodone IR 5MG TABLET PO SCH ×3 (08:33→20:37)
[2017-05-26 08:36] VITALS: BP 142/64
[2017-05-26] MEDS ORDERED: [UNRECOGNIZED DRUG - OTHER] INH SCH (09:00)
[2017-05-26] MEDS ORDERED: MOMETASONE INH SCH (09:00)
[2017-05-26] MEDS ORDERED: FORMOTEROL INH SCH (09:00)
[2017-05-26] MEDS: FLUTICASONE/VILANTEROL 100-25MCG/INH INH SCH (10:22)
[2017-05-26] MEDS ORDERED: GADOBUTROL 10 MMOL/10 ML VIAL ONE (11:20)
[2017-05-26 13:31] VITALS: BP 107/58
[2017-05-26 19:47] VITALS: BP 93/51
[2017-05-27 01:41] VITALS: BP 95/56
[2017-05-27 04:50] LABS: CHLORIDE 113 mmol/L (98-107)
[2017-05-27 04:56] LABS: MEAN CORPUSCULAR HEMOGLOBIN 33.1 pg (27.0-34.8); MEAN CORPUSCULAR VOLUME 100.3 fL (80-100); MEAN PLATELET VOLUME 12.4 fL (7.4-10.4); PLATELET COUNT 170 x10^3/uL (130-400); RED BLOOD COUNT 3.53 x10^6/uL (3.82-5.3)
[2017-05-27 04:58] LABS: ALANINE AMINOTRANSFERASE 11 U/L (12-78); ALBUMIN 2.6 g/dL (3.4-5.0); ALKALINE PHOSPHATASE 55 U/L (45-117); ANION GAP 4 mmol/L (5-15); BILIRUBIN,TOTAL 0.6 mg/dL (0.2-1.0); CALCIUM 7.9 mg/dL (8.5-10.1); CREATININE 0.36 mg/dL (0.55-1.02); TOTAL PROTEIN 5.1 g/dL (6.4-8.2)
[2017-05-27] MEDS: AMPICILLIN/SULBACTAM 3 GM in SODIUM CHLORIDE 0.9% 100 ML IV SCH ×2 (05:26→11:00)
[2017-05-27] MEDS: ENOXAPARIN 40 MG/0.4 ML SQ SCH (05:28)
[2017-05-27 05:47] LABS: BASOPHILS # (AUTO) 0.04 x10^3/uL (0-0.1); BASOPHILS % (AUTO) 0 % (0-1); EOSINOPHILS # (AUTO) 0.35 x10^3/uL (0-0.4); EOSINOPHILS % (AUTO) 3 % (1-7); LYMPHOCYTES # (AUTO) 1.84 x10^3/uL (1-3.4); LYMPHOCYTES % (AUTO) 14 % (22-44); MD SCAN; MONOCYTES # (AUTO) 1.06 x10^3/uL (0.2-0.8); MONOCYTES % (AUTO) 8 % (2-9); NEUTROPHILS # (AUTO) 9.52 x10^3/uL (1.8-6.8); NEUTROPHILS % (AUTO) 74 % (42-75)
[2017-05-27 07:37] VITALS: BP 115/65
[2017-05-27] MEDS: NICOTINE 14MG/24 HR PATCH.TD24 TD SCH (08:23)
[2017-05-27] MEDS: SENNA/DOCUSATE TABLET PO SCH (08:23)
[2017-05-27] MEDS: OXYcodone IR 5MG TABLET PO SCH (08:26)
[2017-05-27] MEDS: FLUTICASONE/VILANTEROL 100-25MCG/INH INH SCH (08:26)
[2017-05-27] MEDS ORDERED: LEVO500T47 PO (08:58)
== END 2017-05-27 11:50 | disposition home or self-care (01) | DRG 871 ==
LOC: ED 23:27 → SUATTDRO 05-26 01:59 → EDIP 05-26 02:12 → 3NE 05-26 02:41 → DCLOUNGE 05-27 11:43
PROVIDERS: ADMIT Family Medicine; ATTEND Hospitalist
DX: A41.9 Sepsis, unspecified organism (principal); J96.21 Acute and chronic respiratory failure with hypoxia; J18.1 Lobar pneumonia, unspecified organism; I77.4 Celiac artery compression syndrome; C25.9 Malignant neoplasm of pancreas, unspecified; F11.20 Opioid dependence, uncomplicated; F17.200 Nicotine dependence, unspecified, uncomplicated; F41.1 Generalized anxiety disorder; M54.9 Dorsalgia, unspecified; I10 Essential (primary) hypertension; J43.9 Emphysema, unspecified; Z82.49 Family history of ischemic heart disease and other diseases of the circulatory system; Z85.07 Personal history of malignant neoplasm of pancreas; Z85.528 Personal history of other malignant neoplasm of kidney; Z90.411 Acquired partial absence of pancreas; Z90.49 Acquired absence of other specified parts of digestive tract; Z90.710 Acquired absence of both cervix and uterus; Z88.1 Allergy status to other antibiotic agents; Z88.8 Allergy status to other drugs, medicaments and biological substances
CPT/HCPCS: 36415; 71045; 71275; 74177; 74183; 80053; 83605; 83690; 83735; 84100; 84484; 85025; 85610; 85730; 87040; 93005; 96361; 96374; A9585; J0295; J1650; J1885; J2543; J3370; J3480; Q9967; J2270; J7030

== ENCOUNTER → 2017-08-21 | Outpatient (CLI) | payer MEDICARE ==
[~2017-08-21] MED LIST changes: +LEVO500T47 PO; +OMNIPAQUE 350 MG/ML, 100ML BOTTLE ONE
== END ==
LOC: CFH 06:50
PROVIDERS: ATTEND Specialist
DX: C25.9 Malignant neoplasm of pancreas, unspecified (principal); C64.9 Malignant neoplasm of unspecified kidney, except renal pelvis; J43.9 Emphysema, unspecified; J18.9 Pneumonia, unspecified organism
CPT/HCPCS: 71260; 74160; 82565; Q9967